=== PATIENT | female | born 1950 | race Caucasian/White ===

== ENCOUNTER 2018-08-16 08:36 | Emergency (ER) | payer MEDICARE, BC ==
[~2018-08-16] VITALS: Ht 167.6 cm; Wt 63.5 kg
[2018-08-16] VITALS (9 sets, daily range): BP systolic 104–140; BP diastolic 60–85
[~2018-08-16 08:36] MED LIST: ACETAMINOPHEN-1 EAC1 ORAL; ADVAIR 100-501 EACH INH; QAIR; VALIUM5 MG ORAL
--- NOTE | 2018-08-16 08:50 | NUR ---
ED Nurse Note: Pt came into the Er after slipping and fallin x 1 hour ago. Pt stated that she landed on her hands and she believes her left wrist is broken. Complaining of 9/10 pain on the left wrist non radiating. Noted to have swelling on the left wrist and full ROM is not present. Pt is A+ O x4. Ambulatory.
[2018-08-16] MEDS ORDERED: Acetaminophen 500mg (ES) tab PO ONE (09:00)
[2018-08-16] MEDS ORDERED: NKM (09:03)
--- NOTE | 2018-08-16 09:08 | NUR ---
ED Nurse Note: Spoke to Edwardo from radiology regarding order for xray. Awaiting for arrival.
--- NOTE | 2018-08-16 09:11 | NUR ---
ED Nurse Note: Xray at the bedside.
--- NOTE | 2018-08-16 09:40 | Emergency Room Report ---
History of Present Illness General Chief Complaint: Upper Extremity Injury Source: Patient Present Illness HPI 68 yo F presents to ED c/o L wrist pain/swelling. states that she tripped and fell this morning landing on her outstretched L wrist. denies hitting her head of LOC. notes pain/deformity to L wrist. 10/10 pain, throbbing, nonradiating. no other aggravating or relieving factors. denies any other associated symptoms. Allergies: Coded Allergies: NSAIDS (NON-STEROIDAL ANTI-INFLAMMA (Verified Allergy, Unknown, 08/16/18) Patient History Past Medical History: none Past Surgical History: none Pertinent Family History: none Social History: Denies: smoking, alcohol use, drug use Now: No Immunizations: UTD Reviewed Nursing Documentation: PMH: Agreed; PSxH: Agreed Nursing Documentation-PMH Past Medical History: No Stated History Hx Asthma: No Review of Systems All Other Systems: negative except mentioned in HPI Physical Exam Vital Signs Date Time Temp Pulse Resp B/P (MAP) Pulse Ox O2 Delivery O2 Flow Rate FiO2 08/16/18 08:44 97.9 80 16 145/80 96 Room Air Sp02 EP Interpretation: reviewed, normal General Appearance: no apparent distress, alert, GCS 15, non-toxic Head: normocephalic Eyes: bilateral eye normal inspection, bilateral eye PERRL ENT: normal ENT inspection Neck: normal inspection Respiratory: normal inspection Cardiovascular #1: normal inspection Gastrointestinal: normal inspection Rectal: deferred Genitourinary: no CVA tenderness Musculoskeletal: swelling - swelling/deformity L wrist Neurologic: alert, oriented x3, responsive, motor strength/tone normal, sensory intact, speech normal Psychiatric: normal inspection Skin: normal inspection Lymphatic: normal inspection Procedures Splinting Splinting : Consent: Verbal Hand-Made Type: plaster Splint: wrist Pre-Proc Neuro Vasc Exam: normal Post-Proc Neuro Vasc Exam: normal Patient Tolerated: Well Complications: None Joint Reduction Joint Reduction : Consent: Written Joint Reduction Site: wrist (L) Procedural Sedation: Yes Reduction Attempts: One Pre-Procedure NV Exam: Yes Post-Procedure NV Exam: Yes Post Joint Reduction Film: joint reduced Patient Tolerated: Well Complications: None Procedural Sedation Consent: Written Pre-Sedation Assessment: Eval. Immed. Prior to Sed, Pre-proc Edu. done, Plan for Sedation Discuss Airway Assessment (Malampati): I Heart: normal Lungs: normal Abdomen: normal Extremities: normal Procedures/Plans: Closed Reduction Plan for Moderate Sedation: Propofol ASA Score: I Procedure Narrative given 50mg of propofol Start Time: 10:40 End Time: 10:45 Communication: No Apparent Limitation Mental Status: Awake Respiration: Unlabored Skin Condition: WNL Abdomen: WNL Nausea: NO Vomiting: NO Medical Decision Making Diagnostic Impression: Primary Impression: Colles' fracture Qualified Codes: S52.532A - Colles' fracture of left radius, initial encounter for closed fracture ER Course Hospital Course 68-year-old F presents to ED complaining of L wrist pain s/p fall Differential diagnoses include: Fracture, dislocation, sprain, contusion Clinical course Patient placed on stretcher. After initial history and physical, I ordered pain medications and Xrays of L hand, wrist Xrays prelim read shows distal radius fracture with angulation. Discussed with patient. Will require reduction. Patient prefers procedural sedation. Consent signed Using 50 mg propofol I reduced the wrist. Splint applied. Repeat x-ray shows improved alignment Discussed with Dr. Jose Rosenthal's office who has managed patient in the past - he will follow patient in his office this week I will also provide him referrals. Patient observed on athletic monitor and is now awake alert oriented 3. Friend at bedside to take patient home Diagnosis - colles fx Stable and discharged to home with prescription for Tylenol #3. apply ice, keep elevated. Followup with ortho/hand. Return to ED if symptoms recur or worsen Other X-Ray Diagnostic Results Other X-Ray Diagnostic Results #1: X-Ray ordered: L hand # of Views/Limited Vs Complete: 3 View Indication: Pain EP Interpretation: Yes Interpretation: no dislocation, no fractures Impression: No acute disease Electronically Signed by: Electronically signed by Anish Nagy MD Other X-Ray Diagnostic Results #2: X-Ray ordered: L wrist # of Views/Limited Vs Complete: 3 View Indication: Pain EP Interpretation: Yes Interpretation: no dislocation, other - distal radius fx with angulation Impression: Other - colles fx Electronically Signed by: Electronically signed by Anish Nagy MD Last Vital Signs Date Time Temp Pulse Resp B/P (MAP) Pulse Ox O2 Delivery O2 Flow Rate FiO2 08/16/18 08:52 97.8 87 20 140/85 97 Room Air Status: improved Disposition: HOME, SELF-CARE Condition: Stable Scripts Acetaminophen With Codeine (T#3) (TYLENOL #3 TAB*) Y Tab 1 TAB ORAL Q8H PRN for For Pain for 3 Days, TAB Prov: Anish Nagy MD 08/16/18 Referrals: NON PHYSICIAN (PCP) Anish Nagy MD Aug 16, 2018 09:40
[2018-08-16] MEDS ORDERED: Propofol 200mg/20ml IV ONE ×3 (10:04→11:30)
--- NOTE | 2018-08-16 11:02 | NUR ---
ED Nurse Note: TIMEOUT DONE AT [address] KASI VILLASEÑOR PUSHED 50MG OF PROPOFOL AT 1040 AT THE R HAND WITH 20 GAUGE INTACT AND PATENT ENDED THE PROCEDURE AT 1045 TOTAL TIME IS 5 MINUTES PT. IS AWAKE AND TALKING BUT DROWSY. NO ACUTE SIGNS AND SYMPTOMS OF RESPIRATORY DISTRESS NOTED AT THIS TIME. CONTINUOUS OXYGEN SATURATION MONITORING Addendum: 08/17/18 at 0714 by [facility] ED Nurse Note: DR. VILLASEÑOR'S GOAL IS -1(DROWSY) GOAL REACHED.
--- NOTE | 2018-08-16 11:08 | NUR ---
ED Nurse Note: PT ON THE PHONE TALKING WITH NO SLURRED SPEECH NOTED. AAOX4
--- NOTE | 2018-08-16 11:14 | NUR ---
ED Nurse Note: XRAY AT THE BEDSIDE
--- NOTE | 2018-08-16 11:25 | NUR ---
ED Nurse Note: PT. STATED THAT MARTIN STILL, HER FRIEND WILL PICKED HER UP AND DRIVE HER BACK HOME
--- NOTE | 2018-08-16 11:25 | NUR ---
ED Nurse Note: PT ON BED WITH NO S/S OF ACUTE DISTRESS NOTED. PT. AWAE AND ALERT AT THIS TIME. ORIENTED X 4
--- NOTE | 2018-08-16 11:34 | NUR ---
ED Nurse Note: DR. VILLASEÑOR AT THE BEDSIDE
--- NOTE | 2018-08-16 11:45 | Diagnostic Imaging Report ---
Indication: Left wrist pain Findings: 2 views of the left wrist were obtained. COMPARISON: Earlier same day Examination shows a dorsally displaced fracture of the distal radius and distal ulna. Exam is limited by plaster cast overlying the fracture. IMPRESSION: Left wrist fracture in plaster cast. Alignment is improved since the prereduction films
--- NOTE | 2018-08-16 11:46 | Diagnostic Imaging Report ---
Indication: Left wrist pain Findings: 3 views of the left wrist were obtained. Acute, impacted, dorsally displaced fracture of the distal radius demonstrated. Fracture of the ulnar styloid and positive ulnar variance also demonstrated. IMPRESSION: Moderately displaced and impacted fracture of the distal radius
--- NOTE | 2018-08-16 11:46 | Diagnostic Imaging Report ---
Indication: left hand pain. Findings: 3 views of the left hand were obtained. Distal radius fracture is present. The carpal bones and the remainder of the hand shows no acute injury. Bones are osteopenic. IMPRESSION: Negative examination of the hand. Distal radius fracture again noted
[2018-08-16] MEDS ORDERED: Morphine Sulfate 4mg/ml Inj (IV USE ONLY) IVP ONE (12:30)
--- NOTE | 2018-08-16 13:37 | NUR ---
ED Nurse Note: pt stated she feels a lot better but she stated" I still feel the need to rest"
--- NOTE | 2018-08-16 13:38 | NUR ---
ED Nurse Note: pt. on bed sleeping with no respiratory distress. Pt. attached to cardiac catheterization technician for continuous monitoring. oxygen saturation is continuous monitored
[2018-08-16] MEDS ORDERED: ACETAMINOPHEN-1 EAC1 ORAL (14:21)
--- NOTE | 2018-08-16 14:33 | NUR ---
ED Nurse Note: Pt AAOX4. ambulatory. left with steady gait. Pt education is done regarding d/c papers and prescriptions. Pt. verbalized the understanding of the teaching. VSS. ID armband removed. Her friend Nasima Still came to pick her up and bring her home
== END 2018-08-16 14:33 | disposition home or self-care (01) ==
LOC: EMR 09:10
DX: S52.532A Colles' fracture of left radius, initial encounter for closed fracture (principal); W01.0XXA Fall on same level from slipping, tripping and stumbling without subsequent striking against object, initial encounter; Y92.89 Other specified places as the place of occurrence of the external cause
CPT/HCPCS: 25605; 29125; 73100; 73110; 73130; 99283; J2270; J2704; J7040